=== PATIENT | male | born 1955 | race Caucasian/White ===

== ENCOUNTER 2018-08-16 19:59 | Inpatient (IN) | payer MEDICAID ==
[~2018-08-16] VITALS: Ht 177.8 cm; Wt 125.0 kg
[2018-08-16 22:14] LABS: BASOPHILS # (AUTO) 0.1 X10'3 (0-0.2); EOSINOPHILS # (AUTO) 0.1 X10'3 (0-0.9); EOSINOPHILS % (AUTO) 1.4 % (0-6); HEMATOCRIT 45.2 % (42.0-52.0); HEMOGLOBIN 15.5 g/dl (14.0-17.9); LYMPHOCYTES # (AUTO) 1.1 X10'3 (1.1-4.8); LYMPHOCYTES % (AUTO) 14.5 % (21-51); MEAN CORPUSCULAR HEMOGLOBIN 33.7 PG (27.0-31.0); MEAN CORPUSCULAR HGB CONC 34.4 % (33.0-36.5); MEAN CORPUSCULAR VOLUME 97.8 FL (78-98); MEAN PLATELET VOLUME 6.8 FL (7.4-10.4); MONOCYTES % (AUTO) 12.3 % (2-12); NEUTROPHILS # (AUTO) 5.5 X10'3 (1.8-7.7); NEUTROPHILS % (AUTO) 70.8 % (42-75); PLATELET COUNT 76 X10'3 (140-440); RED BLOOD COUNT 4.62 X10'6 (4.70-6.10); RED CELL DISTRIBUTION WIDTH 14.2 % (11.5-14.5); WHITE BLOOD COUNT 7.8 X10'3 (4.5-11.0)
[2018-08-16 22:21] LABS: ALANINE AMINOTRANSFERASE 57 U/L (12-78); ALBUMIN 2.4 G/DL (3.4-5.0); ALBUMIN/GLOBULIN RATIO 0.7 (1.1-1.5); ALKALINE PHOSPHATASE 108 IU/L (46-116); ANION GAP 8 (8-16); ASPARTATE AMINO TRANSFERASE 110 U/L (10-37); BILIRUBIN,TOTAL 2.6 MG/DL (0.1-1.0); BLOOD UREA NITROGEN 5 MG/DL (7-18); CALCIUM 7.6 MG/DL (8.5-10.1); CHLORIDE 97 MMOL/L (99-107); CREATININE 0.83 MG/DL (0.60-1.10); GLUCOSE 96 MG/DL (70-104); LIPASE 357 U/L (73-393); POTASSIUM 3.9 MMOL/L (3.5-5.1); SODIUM 132 MMOL/L (135-145); TOTAL CARBON DIOXIDE 27.5 MMOL/L (24-32); TOTAL PROTEIN 5.9 G/DL (6.4-8.2); eGFR > 90 ML/MIN
[2018-08-16 23:27] LABS: CLARITY,URINE CLEAR (Clear); COLOR,URINE AMBER (Yellow); GLUCOSE, URINE 100 mg/dl (Neg); KETONES,URINE 15 mg/dl (Neg); LEUKOCYTE ESTERASE ,URINE NEGATIVE (Neg); OCCULT BLOOD,URINE TRACE-INTACT (Neg); PH,URINE 5.5 (4.8-8.0); PROTEIN,URINE TRACE mg/dl (Neg); UROBILINOGEN,URINE >=8.0 E.U/dL (0.2-1.0)
[2018-08-16 23:29] LABS: NITRITES, URINE NEGATIVE (Neg); UA COLLECTION TYPE STRAIGHT CATH
[2018-08-16] MEDS ORDERED: NO HOME MEDS (23:47)
[2018-08-16 23:48] LABS: BACTERIA,URINE NONE SEEN /HPF (Neg); MUCUS STRANDS MANY /LPF (Neg); SQUAMOUS EPITHELIAL CELL,UR NONE SEEN /LPF (FEW); TRANSITIONAL EPI CELLS,URINE FEW /HPF; WBC,URINE 0-4 /HPF (0-4)
[2018-08-16 23:51] LABS: INR 1.4 INR; PARTIAL THROMBOPLASTIN TIME 27 SECONDS (22-32); PROTHROMBIN TIME 14.4 SECONDS (9.0-12.0)
[2018-08-17] MEDS ORDERED: bisacodyl 10mg suppository rectal RC PRN (00:25)
[2018-08-17] MEDS ORDERED: morphine 4 MG/ML inj SYRINge IV PRN (00:25)
[2018-08-17] MEDS ORDERED: metoclopramide 5 mg/ml inj IV PRN (00:25)
[2018-08-17] MEDS ORDERED: acetaminophen 650mg rectal suppository RC PRN (00:25)
[2018-08-17] MEDS ORDERED: diphenhydrAMINE 25mg capsule PO PRN (00:25)
[2018-08-17] MEDS ORDERED: magnesium hydroxide 30ml (MOM) UD suspension PO PRN (00:25)
[2018-08-17] MEDS ORDERED: mag hydrox/Alum hydrox/simeth 30ml oral suspension PO PRN ×2 (00:25→02:20)
[2018-08-17] MEDS ORDERED: ondansetron/PF 4mg/2ml inj IV PRN (00:25)
[2018-08-17] MEDS ORDERED: diphenhydrAMINE 50 mg/ml inj IV PRN (00:25)
[2018-08-17] MEDS ORDERED: acetaminophen 325mg tablet PO PRN ×2 (00:25)
[2018-08-17] MEDS: HYDROcodone/acetaminophen 10/325mg tab PO PRN ×2 (02:07→17:16)
[2018-08-17 02:10] LABS: URINE AMPHETAMINE SCREEN NEGATIVE (Neg); URINE BARBITUATE SCREEN NEGATIVE (Neg); URINE BENZODIAZEPINES SCREEN NEGATIVE (Neg); URINE CANNABINOID SCREEN NEGATIVE (Neg); URINE COCAINE SCREEN NEGATIVE (Neg); URINE METHADONE SCREEN NEGATIVE (Neg); URINE OPIATE SCREEN NEGATIVE (Neg); URINE PHENCYCLIDINE SCREEN NEGATIVE (Neg)
[2018-08-17] MEDS ORDERED: dicyclomine 10 MG capsule PO PRN (02:20)
[2018-08-17] MEDS ORDERED: haloperidol lactate 5mg/ml inj IM PRN (02:20)
[2018-08-17] MEDS ORDERED: cyclobenzaprine 10mg tablet PO PRN (02:20)
[2018-08-17] MEDS ORDERED: loperamide 2mg capsule PO ONE (02:20)
[2018-08-17] MEDS ORDERED: thiamine inj. 100 MG in normal saline 100ml IV soln 100 ML IV ONE (02:20)
[2018-08-17] MEDS: loperamide 2mg capsule PO SCH ×8 (02:20→21:00)
[2018-08-17] MEDS ORDERED: cloNIDine 0.1 MG/24 HOUR patch (7 day patch) TD SCH (02:20)
[2018-08-17] MEDS: LORazepam 2 mg/ml vial IV PRN ×3 (05:16→23:54)
[2018-08-17] MEDS: docusate sod 100mg capsule PO SCH ×2 (08:00→19:58)
[2018-08-17 08:08] LABS: MAGNESIUM 1.6 MG/DL (1.5-2.4); PHOSPHORUS 3.4 MG/DL (2.3-4.5)
[2018-08-17] MEDS: furosemide 10 MG/1 ML 10ml inj IV SCH ×2 (09:21→20:03)
[2018-08-17] MEDS: folic acid inj. 2 MG, thiamine inj. 100 MG, MVI, adult No.4 with vit. K 10 ML in dextro... IV SCH ×4 (09:22)
[2018-08-17] MEDS: nicotine 21mg patch - 24 hr TD SCH (09:22)
[2018-08-17] MEDS: pantoprazole 40mg Tablet.DR PO SCH (09:22)
[2018-08-17] MEDS: atenolol 50mg tablet PO SCH (12:59)
[2018-08-17] MEDS ORDERED: LIDOcaine 1%/PF 5ML 10 MG/ML VIAL ONE (17:24)
--- NOTE | 2018-08-17 23:54 | NUR ---
PT UP AMBULATING IN [place] WITH BELONGINGS, ASKING ABOUT FILMING A MOVIE, SLIGHTLY DISORIENTED. STATES AWOKE FROM A DREAM AND WAS CONFUSED ABOUT WHERE HE WAS. RE ORIENTED TO TIME, PLACE. ATIVAN IV GIVEN FOR ETOH WITHDRAWAL LIKE S/S.
--- NOTE | 2018-08-18 01:06 | NUR ---
FOUND WONDERING DOWN IN REGISTRATION, BROUGHT BACK TO ROOM BY STAFF. PT NOT MAKING A LOT OF SENSE. GIVEN HALDOL IM FOR ETOH WITHDRAWAL S/S.
--- NOTE | 2018-08-18 02:29 | NUR ---
SLEEPING, NO FURTHER S/S OF ETOH WITHDRAWALS AT THIS TIME.
[2018-08-18] MEDS: loperamide 2mg capsule PO SCH ×5 (03:00→12:00)
--- NOTE | 2018-08-18 03:59 | NUR ---
UP TO BR, ASHTYN WELL. SHOWN BACK TO ROOM.
--- NOTE | 2018-08-18 05:39 | NUR ---
PT FOUND WONDERING IN HALLS AGAIN, PULLED OUT IV, WRAPPED UP MONITOR CORDS NEATLY ON SHIN STAND AND HAD BELONGING BAGS IN HAND READY TO GO HOME. RE ORIENTED AGAIN, NEW SL PLACED IN R WRIST, ASHTYN WELL. ATIVAN GIVEN FOR ETOH WITHDRAWALS.
[2018-08-18] MEDS: LORazepam 2 mg/ml vial IV PRN ×3 (05:45→22:19)
[2018-08-18] MEDS: pantoprazole 40mg Tablet.DR PO SCH (07:39)
[2018-08-18 08:10] VITALS: BP 144/77
[2018-08-18 08:44] LABS: BASOPHILS % (AUTO) 0.5 % (0-1); EOSINOPHILS # (AUTO) 0.1 X10'3 (0-0.9); EOSINOPHILS % (AUTO) 1.9 % (0-6); HEMOGLOBIN 15.3 g/dl (14.0-17.9); LYMPHOCYTES # (AUTO) 1.1 X10'3 (1.1-4.8); LYMPHOCYTES % (AUTO) 20.3 % (21-51); MEAN CORPUSCULAR HEMOGLOBIN 33.7 PG (27.0-31.0); MEAN CORPUSCULAR HGB CONC 34.1 % (33.0-36.5); MEAN CORPUSCULAR VOLUME 98.9 FL (78-98); MEAN PLATELET VOLUME 6.5 FL (7.4-10.4); MONOCYTES # (AUTO) 0.8 X10'3 (0-0.9); MONOCYTES % (AUTO) 14.3 % (2-12); NEUTROPHILS # (AUTO) 3.4 X10'3 (1.8-7.7); PLATELET COUNT 66 X10'3 (140-440); RED BLOOD COUNT 4.55 X10'6 (4.70-6.10); RED CELL DISTRIBUTION WIDTH 13.9 % (11.5-14.5); WHITE BLOOD COUNT 5.4 X10'3 (4.5-11.0)
[2018-08-18] MEDS: folic acid inj. 2 MG, thiamine inj. 100 MG, MVI, adult No.4 with vit. K 10 ML in dextro... IV SCH ×4 (08:55)
[2018-08-18] MEDS: furosemide 10 MG/1 ML 10ml inj IV SCH ×2 (08:55→22:21)
[2018-08-18] MEDS: atenolol 50mg tablet PO SCH (08:55)
[2018-08-18] MEDS: docusate sod 100mg capsule PO SCH ×2 (08:55→22:22)
[2018-08-18] MEDS: nicotine 21mg patch - 24 hr TD SCH (08:56)
[2018-08-18 09:02] LABS: ALANINE AMINOTRANSFERASE 51 U/L (12-78); ALBUMIN 2.3 G/DL (3.4-5.0); ALBUMIN/GLOBULIN RATIO 0.7 (1.1-1.5); ALKALINE PHOSPHATASE 96 IU/L (46-116); AMYLASE 217 U/L (25-115); ANION GAP 11 (8-16); ASPARTATE AMINO TRANSFERASE 103 U/L (10-37); BILIRUBIN,TOTAL 3.9 MG/DL (0.1-1.0); BLOOD UREA NITROGEN 7 MG/DL (7-18); CALCIUM 7.6 MG/DL (8.5-10.1); CHLORIDE 97 MMOL/L (99-107); CREATININE 0.78 MG/DL (0.60-1.10); GLUCOSE 75 MG/DL (70-104); MAGNESIUM 1.5 MG/DL (1.5-2.4); POTASSIUM 3.4 MMOL/L (3.5-5.1); SODIUM 134 MMOL/L (135-145); TOTAL CARBON DIOXIDE 26.5 MMOL/L (24-32); TOTAL PROTEIN 5.4 G/DL (6.4-8.2); eGFR > 90 ML/MIN
[2018-08-18 09:11] LABS: LIPASE 1964 U/L (73-393)
--- NOTE | 2018-08-18 10:06 | NUR ---
Just spoke to the patient's Britt, updated her about patient condition and plan of care. Information given with patient's verbal permission
[2018-08-18 11:00] VITALS: BP 128/64
[2018-08-18 13:21] VITALS: BP 136/88
--- NOTE | 2018-08-18 13:22 | NUR ---
IR staff at bedside preparing patient for paracentesis
[2018-08-18 13:29] VITALS: BP 130/81
[2018-08-18] MEDS ORDERED: albumin (human) 25% 100ml IV 100 ML IV ONE ×3 (13:35→14:40)
--- NOTE | 2018-08-18 14:56 | NUR ---
Second bottle of Albumin 25% 100 ml given. BP after the first dose of Albumin was 111/68.Will monitor BP closely. Pressure dressing on the puncture site - left lateral abdomen applied, bandage was noted wet.
[2018-08-18] MEDS ORDERED: Lactulose Enema **for rectal use only RC SCH ×2 (15:00)
--- NOTE | 2018-08-18 15:13 | NUR ---
Called patient's Estela for an update per patient's request
[2018-08-18 15:30] LABS: GLUCOSE,BODY FLUID 94 MG/DL; LDH,BODY FLUID 71 U/L
[2018-08-18 15:43] LABS: LYMPHOCYTES,BODY FLUID 70 %; MONOCYTES,BODY FLUID 10 %; NEUTROPHILS,BODY FLUID 20 %
[2018-08-18 15:45] LABS: BF RBC COUNT 3325 /CU MM; BF WBC COUNT 40 /CU MM (0-1000); BFAPPEAR CLOUDY; BFCOLOR YELLOW; BFVOLUME 6 ML
[2018-08-18 15:52] LABS: TOTAL PROTEIN,BODY FLUID < 2.0 G/DL
[2018-08-18] MEDS: dextrose 5%-water 1,000 ML IV SCH ×2 (15:59→23:40)
--- NOTE | 2018-08-18 16:01 | NUR ---
3rd bottle of Albumin 25% given IV as ordered. BP 137/79 Addendum: 08/18/18 at 1604 by Mike Ley RN Total fluid removed after paracentesis was approx 11 liters per IR nurse
[2018-08-18 19:00] VITALS: BP 130/74
--- NOTE | 2018-08-18 19:01 | NUR ---
Problems reprioritized. Patient report given, questions answered & plan of care reviewed with Agnes DRAPER.
[2018-08-18] MEDS: HYDROmorphone 1 mg/ml syringe IV PRN (19:03)
[2018-08-18] MEDS: HYDROcodone/acetaminophen 10/325mg tab PO PRN (22:21)
[2018-08-19] VITALS: BP 104/50
[2018-08-19] MEDS: HYDROmorphone 1 mg/ml syringe IV PRN (01:28)
[2018-08-19] MEDS: dextrose 5%-water 1,000 ML IV SCH (01:33)
[2018-08-19 06:28] LABS: ALANINE AMINOTRANSFERASE 36 U/L (12-78); ALBUMIN 2.2 G/DL (3.4-5.0); ALKALINE PHOSPHATASE 64 IU/L (46-116); ANION GAP 7 (8-16); ASPARTATE AMINO TRANSFERASE 69 U/L (10-37); BILIRUBIN,TOTAL 3.4 MG/DL (0.1-1.0); BLOOD UREA NITROGEN 6 MG/DL (7-18); BUN/CREATININE RATIO 8.1 (5.4-32.0); CALCIUM 7.1 MG/DL (8.5-10.1); CHLORIDE 98 MMOL/L (99-107); CREATININE 0.74 MG/DL (0.60-1.10); GLUCOSE 110 MG/DL (70-104); LIPASE 253 U/L (73-393); MAGNESIUM 1.3 MG/DL (1.5-2.4); PHOSPHORUS 3.7 MG/DL (2.3-4.5); SODIUM 135 MMOL/L (135-145); TOTAL CARBON DIOXIDE 30.4 MMOL/L (24-32); TOTAL PROTEIN 4.3 G/DL (6.4-8.2); eGFR > 90 ML/MIN
[2018-08-19 06:34] LABS: BASOPHILS # (AUTO) 0.1 X10'3 (0-0.2); HEMATOCRIT 40.8 % (42.0-52.0); HEMOGLOBIN 13.9 g/dl (14.0-17.9); LYMPHOCYTES % (AUTO) 20.2 % (21-51); MEAN CORPUSCULAR HEMOGLOBIN 33.5 PG (27.0-31.0); MEAN CORPUSCULAR VOLUME 98.6 FL (78-98); MEAN PLATELET VOLUME 6.4 FL (7.4-10.4); MONOCYTES # (AUTO) 0.6 X10'3 (0-0.9); MONOCYTES % (AUTO) 11.9 % (2-12); NEUTROPHILS # (AUTO) 3.2 X10'3 (1.8-7.7); NEUTROPHILS % (AUTO) 65.9 % (42-75); PLATELET COUNT 61 X10'3 (140-440); RED BLOOD COUNT 4.14 X10'6 (4.70-6.10); RED CELL DISTRIBUTION WIDTH 13.6 % (11.5-14.5); WHITE BLOOD COUNT 4.8 X10'3 (4.5-11.0)
--- NOTE | 2018-08-19 06:45 | NUR ---
Problems reprioritized. Patient report given, questions answered & plan of care reviewed with Mary DRAPER. Addendum: 08/19/18 at 0645 by Agnes Srinivasan RN Amended: Links added.
--- NOTE | 2018-08-19 06:50 | NUR ---
Patient in room [facility]. I have received report from BARON Alarcon and had the opportunity to ask questions and assume patient care.
[2018-08-19 07:00] VITALS: BP 104/45
[2018-08-19 07:28] LABS: POTASSIUM 2.8 MMOL/L (3.5-5.1)
[2018-08-19] MEDS ORDERED: potassium Cl 40MEQ/NS 500ml 500 ML IV PRN ×2 (07:45)
[2018-08-19] MEDS ORDERED: magnesium 4gm in 100ml NS 100 ML IV PRN (07:45)
[2018-08-19] MEDS: lactulose 20gm/30ml cup PO SCH ×3 (08:13→20:34)
[2018-08-19] MEDS: folic acid 1mg tablet PO SCH (08:13)
[2018-08-19] MEDS: thiamine 100mg tablet PO SCH (08:14)
[2018-08-19] MEDS: atenolol 50mg tablet PO SCH (08:14)
[2018-08-19] MEDS: nicotine 21mg patch - 24 hr TD SCH (08:15)
[2018-08-19] MEDS: docusate sod 100mg capsule PO SCH ×2 (08:15→20:34)
[2018-08-19] MEDS: furosemide 10 MG/1 ML 10ml inj IV SCH ×3 (08:16→23:34)
[2018-08-19] MEDS: pantoprazole 40mg Tablet.DR PO SCH (08:16)
[2018-08-19] MEDS: potassium Cl 20 mEq SR tablet PO PRN ×3 (08:18→17:16)
[2018-08-19 11:00] VITALS: BP 124/59
[2018-08-19] MEDS: HYDROcodone/acetaminophen 10/325mg tab PO PRN ×2 (12:10→23:37)
[2018-08-19] MEDS ORDERED: pneumococcal 23-VAL P-sac vacc 25 mcg/0.5ml vial IMVAC ONE (12:34)
[2018-08-19] MEDS ORDERED: LORazepam 2 mg/ml vial IV PRN (13:30)
[2018-08-19] MEDS ORDERED: TETanus/Pertussis (Acell)/Diphther VAC/PF (Tdap-Adult) 0.5ml syringe IMVAC ONE (14:35)
[2018-08-19] MEDS: LORazepam 1 MG tablet PO PRN ×3 (17:16→23:37)
--- NOTE | 2018-08-19 18:01 | NUR ---
Problems reprioritized. Patient report given, questions answered & plan of care reviewed with BARON Hensley. Addendum: 08/19/18 at 1818 by Mary Fall RN Problems reprioritized. Patient report given, questions answered & plan of care reviewed with BARON Hathaway.
--- NOTE | 2018-08-19 18:30 | NUR ---
Patient in room [facility]. I have received report from BARON Hernandez and had the opportunity to ask questions and assume patient care. Addendum: 08/19/18 at 1909 by Frances Cassidy RN Amended: Links added.
[2018-08-19 19:00] VITALS: BP 152/89
[2018-08-19 23:32] VITALS: BP 138/81
[2018-08-20] MEDS: LORazepam 1 MG tablet PO PRN ×3 (02:15→10:42)
[2018-08-20] MEDS: lactulose 20gm/30ml cup PO SCH ×4 (02:15→19:38)
[2018-08-20] MEDS: HYDROmorphone 1 mg/ml syringe IV PRN ×3 (02:57→19:44)
[2018-08-20] MEDS: HYDROcodone/acetaminophen 10/325mg tab PO PRN (04:55)
[2018-08-20 05:34] LABS: BASOPHILS % (AUTO) 1.1 % (0-1); EOSINOPHILS % (AUTO) 0.3 % (0-6); HEMATOCRIT 44.4 % (42.0-52.0); HEMOGLOBIN 15.2 g/dl (14.0-17.9); LYMPHOCYTES # (AUTO) 0.5 X10'3 (1.1-4.8); LYMPHOCYTES % (AUTO) 13.5 % (21-51); MEAN CORPUSCULAR HEMOGLOBIN 33.4 PG (27.0-31.0); MEAN CORPUSCULAR HGB CONC 34.2 % (33.0-36.5); MEAN CORPUSCULAR VOLUME 97.4 FL (78-98); MEAN PLATELET VOLUME 6.4 FL (7.4-10.4); MONOCYTES # (AUTO) 0.5 X10'3 (0-0.9); MONOCYTES % (AUTO) 14.2 % (2-12); NEUTROPHILS # (AUTO) 2.7 X10'3 (1.8-7.7); NEUTROPHILS % (AUTO) 70.9 % (42-75); PLATELET COUNT 68 X10'3 (140-440); RED BLOOD COUNT 4.56 X10'6 (4.70-6.10); RED CELL DISTRIBUTION WIDTH 13.9 % (11.5-14.5); WHITE BLOOD COUNT 3.8 X10'3 (4.5-11.0)
[2018-08-20 05:49] LABS: ALANINE AMINOTRANSFERASE 51 U/L (12-78); ALBUMIN 2.6 G/DL (3.4-5.0); ALKALINE PHOSPHATASE 72 IU/L (46-116); ANION GAP 8 (8-16); ASPARTATE AMINO TRANSFERASE 100 U/L (10-37); BILIRUBIN,TOTAL 3.6 MG/DL (0.1-1.0); BLOOD UREA NITROGEN 7 MG/DL (7-18); BUN/CREATININE RATIO 7.8 (5.4-32.0); CALCIUM 7.3 MG/DL (8.5-10.1); CHLORIDE 97 MMOL/L (99-107); GLUCOSE 107 MG/DL (70-104); LIPASE 256 U/L (73-393); MAGNESIUM 1.2 MG/DL (1.5-2.4); POTASSIUM 3.4 MMOL/L (3.5-5.1); SODIUM 132 MMOL/L (135-145); TOTAL CARBON DIOXIDE 27.2 MMOL/L (24-32); TOTAL PROTEIN 5.3 G/DL (6.4-8.2); eGFR 86 ML/MIN
--- NOTE | 2018-08-20 06:45 | NUR ---
Problems reprioritized. Patient report given, questions answered & plan of care reviewed with JOSSELIN DRAPER. Addendum: 08/20/18 at 0709 by Frances Cassidy RN Amended: Links added.
[2018-08-20 07:00] VITALS: BP 129/60
[2018-08-20] MEDS: thiamine 100mg tablet PO SCH (09:08)
[2018-08-20] MEDS: potassium Cl 20 mEq SR tablet PO PRN ×3 (09:08→17:52)
[2018-08-20] MEDS: docusate sod 100mg capsule PO SCH ×2 (09:08→19:38)
[2018-08-20] MEDS: folic acid 1mg tablet PO SCH (09:08)
[2018-08-20] MEDS: furosemide 10 MG/1 ML 10ml inj IV SCH ×2 (09:08→19:43)
[2018-08-20] MEDS: nicotine 21mg patch - 24 hr TD SCH (09:09)
[2018-08-20] MEDS: atenolol 50mg tablet PO SCH (09:09)
[2018-08-20] MEDS: pantoprazole 40mg Tablet.DR PO SCH (09:09)
[2018-08-20 12:00] VITALS: BP 133/71
[2018-08-20] MEDS ORDERED: magnesium 2GM in 50ml NS 50 ML IV PRN (12:15)
--- NOTE | 2018-08-20 18:30 | NUR ---
Patient in room [facility]. I have received report from BARON SCHWAB and had the opportunity to ask questions and assume patient care. Addendum: 08/20/18 at 1921 by Frances Cassidy RN Amended: Links added.
--- NOTE | 2018-08-20 18:42 | NUR ---
Problems reprioritized. Patient report given, questions answered & plan of care reviewed with BARON Nagel.
[2018-08-20 19:33] VITALS: BP 172/87
[2018-08-20 23:30] VITALS: BP 132/74
[2018-08-21] MEDS: HYDROcodone/acetaminophen 10/325mg tab PO PRN ×3 (00:49→19:59)
[2018-08-21] MEDS: LORazepam 1 MG tablet PO PRN ×2 (00:49→10:21)
[2018-08-21] MEDS: lactulose 20gm/30ml cup PO SCH ×4 (02:00→19:58)
[2018-08-21 04:00] VITALS: BP 123/63
[2018-08-21 05:38] LABS: BASOPHILS % (AUTO) 0.5 % (0-1); EOSINOPHILS % (AUTO) 0 % (0-6); HEMATOCRIT 46.4 % (42.0-52.0); HEMOGLOBIN 15.7 g/dl (14.0-17.9); LYMPHOCYTES # (AUTO) 0.8 X10'3 (1.1-4.8); LYMPHOCYTES % (AUTO) 12.7 % (21-51); MEAN CORPUSCULAR HEMOGLOBIN 33.6 PG (27.0-31.0); MEAN CORPUSCULAR HGB CONC 33.8 % (33.0-36.5); MEAN CORPUSCULAR VOLUME 99.5 FL (78-98); MEAN PLATELET VOLUME 6.8 FL (7.4-10.4); MONOCYTES # (AUTO) 0.8 X10'3 (0-0.9); NEUTROPHILS # (AUTO) 4.9 X10'3 (1.8-7.7); NEUTROPHILS % (AUTO) 74.8 % (42-75); PLATELET COUNT 60 X10'3 (140-440); RED BLOOD COUNT 4.66 X10'6 (4.70-6.10); WHITE BLOOD COUNT 6.6 X10'3 (4.5-11.0)
[2018-08-21 06:19] LABS: ALANINE AMINOTRANSFERASE 46 U/L (12-78); ALBUMIN 2.5 G/DL (3.4-5.0); ALBUMIN/GLOBULIN RATIO 0.9 (1.1-1.5); ALKALINE PHOSPHATASE 68 IU/L (46-116); ANION GAP 6 (8-16); ASPARTATE AMINO TRANSFERASE 100 U/L (10-37); BILIRUBIN,TOTAL 2.5 MG/DL (0.1-1.0); CALCIUM 7.2 MG/DL (8.5-10.1); CHLORIDE 98 MMOL/L (99-107); CREATININE 0.97 MG/DL (0.60-1.10); GLUCOSE 90 MG/DL (70-104); MAGNESIUM 1.8 MG/DL (1.5-2.4); PHOSPHORUS 3.5 MG/DL (2.3-4.5); POTASSIUM 3.3 MMOL/L (3.5-5.1); SODIUM 135 MMOL/L (135-145); TOTAL CARBON DIOXIDE 31.1 MMOL/L (24-32); TOTAL PROTEIN 5.4 G/DL (6.4-8.2); eGFR 78 ML/MIN
--- NOTE | 2018-08-21 06:31 | NUR ---
Problems reprioritized. Patient report given, questions answered & plan of care reviewed with BARON Veliz. Addendum: 08/21/18 at 0631 by Frances Cassidy RN Amended: Links added.
[2018-08-21 06:33] LABS: BLOOD UREA NITROGEN 9 MG/DL (7-18); BUN/CREATININE RATIO 9.3 (5.4-32.0)
[2018-08-21 06:38] LABS: LIPASE 1807 U/L (73-393)
[2018-08-21] MEDS: pantoprazole 40mg Tablet.DR PO SCH (07:47)
[2018-08-21] MEDS: thiamine 100mg tablet PO SCH (07:47)
[2018-08-21] MEDS: potassium Cl 20 mEq SR tablet PO PRN ×3 (07:47→16:26)
[2018-08-21] MEDS: folic acid 1mg tablet PO SCH (07:47)
[2018-08-21] MEDS: nicotine 21mg patch - 24 hr TD SCH (07:47)
[2018-08-21 07:50] VITALS: BP 143/76
[2018-08-21] MEDS: docusate sod 100mg capsule PO SCH (07:54)
[2018-08-21] MEDS: atenolol 50mg tablet PO SCH (07:55)
[2018-08-21] MEDS: furosemide 10 MG/1 ML 10ml inj IV SCH ×2 (07:55→20:11)
--- NOTE | 2018-08-21 11:27 | NUR ---
ss met pt today, attempted to provided psychosocial & ETOH use assessments, pt alert & oriented X3 however, had significant difficulties participating in assessment interview, SS will rt at later time & try again. Pt provided verbal consent for SS to contact his spouse. SS contacted pt's spouse, engaged her in discussion re pt's ADLs, use of etoh & how much caregiving she provides. Per discussion, spouse is pt's caregiver & not interested in [facility] services, pt is an alcoholic was able to maintain sobriety for 5 years when he was incarcerated, but relapsed when he returned home yet spouse does not feel that pt needs referrals/resources about alcohol treatment programs. SS will see pt later today to attempt assessments.
[2018-08-21 13:00] VITALS: BP 83/45
[2018-08-21 13:05] VITALS: BP 87/51
--- NOTE | 2018-08-21 13:10 | NUR ---
Patient BP 83/45..recheck 87/51, Dr. Priest aware, no new orders.
--- NOTE | 2018-08-21 18:50 | NUR ---
Patient in room [facility]. I have received report from Cara DRAPER and had the opportunity to ask questions and assume patient care.
[2018-08-21] MEDS: CefTRIAXone 2gm/D5W 50ml 50 ML IV SCH (18:56)
[2018-08-21 19:00] VITALS: BP 102/61
--- NOTE | 2018-08-21 19:05 | NUR ---
Problems reprioritized. Patient report given, questions answered & plan of care reviewed with BARON De La Torre.
[2018-08-21] MEDS: lactobacillus rhamnosus 10,000 MMU CELLS/CAPSULE PO SCH (19:58)
[2018-08-22] VITALS: BP 97/50
[2018-08-22] MEDS: lactulose 20gm/30ml cup PO SCH ×4 (03:30→21:01)
[2018-08-22 06:37] LABS: BASOPHILS % (AUTO) 0.7 % (0-1); EOSINOPHILS # (AUTO) 0.1 X10'3 (0-0.9); EOSINOPHILS % (AUTO) 1.4 % (0-6); HEMATOCRIT 46.6 % (42.0-52.0); HEMOGLOBIN 15.8 g/dl (14.0-17.9); LYMPHOCYTES # (AUTO) 0.6 X10'3 (1.1-4.8); LYMPHOCYTES % (AUTO) 11.6 % (21-51); MEAN CORPUSCULAR HEMOGLOBIN 33.8 PG (27.0-31.0); MEAN CORPUSCULAR HGB CONC 33.9 % (33.0-36.5); MEAN CORPUSCULAR VOLUME 99.7 FL (78-98); MEAN PLATELET VOLUME 7.1 FL (7.4-10.4); MONOCYTES # (AUTO) 0.6 X10'3 (0-0.9); MONOCYTES % (AUTO) 11.5 % (2-12); NEUTROPHILS % (AUTO) 74.8 % (42-75); PLATELET COUNT 57 X10'3 (140-440); RED BLOOD COUNT 4.68 X10'6 (4.70-6.10); WHITE BLOOD COUNT 5.3 X10'3 (4.5-11.0)
[2018-08-22 07:01] LABS: ALANINE AMINOTRANSFERASE 53 U/L (12-78); ALBUMIN 2.2 G/DL (3.4-5.0); ALBUMIN/GLOBULIN RATIO 0.7 (1.1-1.5); ALKALINE PHOSPHATASE 64 IU/L (46-116); ANION GAP 4 (8-16); ASPARTATE AMINO TRANSFERASE 99 U/L (10-37); BLOOD UREA NITROGEN 11 MG/DL (7-18); BUN/CREATININE RATIO 12.9 (5.4-32.0); CALCIUM 7.8 MG/DL (8.5-10.1); CHLORIDE 99 MMOL/L (99-107); CREATININE 0.85 MG/DL (0.60-1.10); GLUCOSE 106 MG/DL (70-104); LIPASE 785 U/L (73-393); MAGNESIUM 1.6 MG/DL (1.5-2.4); PHOSPHORUS 2.9 MG/DL (2.3-4.5); SODIUM 136 MMOL/L (135-145); TOTAL PROTEIN 5.2 G/DL (6.4-8.2); eGFR > 90 ML/MIN
--- NOTE | 2018-08-22 07:05 | NUR ---
Problems reprioritized. Patient report given, questions answered & plan of care reviewed with Radha DRAPER.
[2018-08-22 07:37] VITALS: BP 131/71
[2018-08-22] MEDS: nicotine 21mg patch - 24 hr TD SCH (09:55)
[2018-08-22] MEDS: pantoprazole 40mg Tablet.DR PO SCH (09:55)
[2018-08-22] MEDS: furosemide 10 MG/1 ML 10ml inj IV SCH ×2 (09:56→21:02)
[2018-08-22] MEDS: lactobacillus rhamnosus 10,000 MMU CELLS/CAPSULE PO SCH ×2 (09:56→21:00)
[2018-08-22] MEDS: CefTRIAXone 2gm/D5W 50ml 50 ML IV SCH (09:56)
[2018-08-22] MEDS: folic acid 1mg tablet PO SCH (09:57)
[2018-08-22] MEDS: thiamine 100mg tablet PO SCH (09:57)
[2018-08-22 12:14] VITALS: BP 94/56
--- NOTE | 2018-08-22 15:27 | NUR ---
Initial: Pt admitted with ascites secondary to cirrhosis of liver, s/p paracentesis with 11 L obtained per MD progress notes. Pt currently encephalopathic and confused per MD progress notes. Pt previously on a clear liquid diet with good PO intake, diet has just been advanced to regular, PO intake pending. Pt on Thiamine and Folic acid d/t significant Etoh abuse. LBM 08/22, no wounds. Will continue to follow. Recommendations: 1) Continue with regular diet 2) Continue Thiamine and Folic acid d/t hx Etoh abuse 3) Wt per rx Addendum: 08/22/18 at [address] Amended: Links added.
--- NOTE | 2018-08-22 18:23 | NUR ---
Problems reprioritized. Patient report given, questions answered & plan of care reviewed with BARON De La Torre.
--- NOTE | 2018-08-22 18:50 | NUR ---
Patient in room [facility]. I have received report from Radha Michele and had the opportunity to ask questions and assume patient care.
[2018-08-22 19:00] VITALS: BP 109/61
[2018-08-22] MEDS: LORazepam 1 MG tablet PO PRN (21:00)
[2018-08-22] MEDS: HYDROcodone/acetaminophen 10/325mg tab PO PRN (21:01)
[2018-08-23] VITALS: BP 110/68
[2018-08-23] MEDS: lactulose 20gm/30ml cup PO SCH ×4 (02:08→20:51)
--- NOTE | 2018-08-23 06:20 | NUR ---
Patient in room [facility]. I have received report from Britt DRAPER and had the opportunity to ask questions and assume patient care.
--- NOTE | 2018-08-23 06:25 | NUR ---
Problems reprioritized. Patient report given, questions answered & plan of care reviewed with Gem DRAPER.
[2018-08-23 06:47] LABS: EOSINOPHILS # (AUTO) 0.1 X10'3 (0-0.9); EOSINOPHILS % (AUTO) 2.3 % (0-6); HEMATOCRIT 46.8 % (42.0-52.0); HEMOGLOBIN 15.4 g/dl (14.0-17.9); LYMPHOCYTES # (AUTO) 1.2 X10'3 (1.1-4.8); LYMPHOCYTES % (AUTO) 27.2 % (21-51); MEAN CORPUSCULAR HGB CONC 32.9 % (33.0-36.5); MEAN CORPUSCULAR VOLUME 100.5 FL (78-98); MEAN PLATELET VOLUME 7.4 FL (7.4-10.4); MONOCYTES # (AUTO) 0.7 X10'3 (0-0.9); MONOCYTES % (AUTO) 15.8 % (2-12); NEUTROPHILS # (AUTO) 2.3 X10'3 (1.8-7.7); NEUTROPHILS % (AUTO) 53.7 % (42-75); PLATELET COUNT 54 X10'3 (140-440); RED BLOOD COUNT 4.65 X10'6 (4.70-6.10); RED CELL DISTRIBUTION WIDTH 14.1 % (11.5-14.5); WHITE BLOOD COUNT 4.3 X10'3 (4.5-11.0)
[2018-08-23 07:13] LABS: ALANINE AMINOTRANSFERASE 59 U/L (12-78); ALBUMIN 2.2 G/DL (3.4-5.0); ALBUMIN/GLOBULIN RATIO 0.8 (1.1-1.5); ALKALINE PHOSPHATASE 70 IU/L (46-116); ANION GAP 7 (8-16); ASPARTATE AMINO TRANSFERASE 105 U/L (10-37); BILIRUBIN,TOTAL 1.7 MG/DL (0.1-1.0); BLOOD UREA NITROGEN 13 MG/DL (7-18); BUN/CREATININE RATIO 14.4 (5.4-32.0); CALCIUM 7.6 MG/DL (8.5-10.1); CHLORIDE 100 MMOL/L (99-107); GLUCOSE 98 MG/DL (70-104); LIPASE 408 U/L (73-393); MAGNESIUM 1.6 MG/DL (1.5-2.4); PHOSPHORUS 3.4 MG/DL (2.3-4.5); POTASSIUM 3.4 MMOL/L (3.5-5.1); SODIUM 140 MMOL/L (135-145); TOTAL PROTEIN 5.1 G/DL (6.4-8.2); eGFR 86 ML/MIN
[2018-08-23 07:47] VITALS: BP 115/62
[2018-08-23] MEDS: folic acid 1mg tablet PO SCH (07:55)
[2018-08-23] MEDS: pantoprazole 40mg Tablet.DR PO SCH (07:55)
[2018-08-23] MEDS: lactobacillus rhamnosus 10,000 MMU CELLS/CAPSULE PO SCH ×2 (07:55→20:52)
[2018-08-23] MEDS: thiamine 100mg tablet PO SCH (07:55)
[2018-08-23] MEDS: nicotine 21mg patch - 24 hr TD SCH (07:56)
[2018-08-23] MEDS: furosemide 10 MG/1 ML 10ml inj IV SCH (07:56)
[2018-08-23] MEDS: CefTRIAXone 2gm/D5W 50ml 50 ML IV SCH (07:56)
[2018-08-23] MEDS: HYDROcodone/acetaminophen 10/325mg tab PO PRN ×2 (07:58→20:52)
[2018-08-23] MEDS ORDERED: potassium Cl 40MEQ/NS 500ml 500 ML IV PRN ×2 (09:35)
[2018-08-23] MEDS ORDERED: potassium Cl 20 mEq SR tablet PO PRN (09:35)
[2018-08-23] MEDS: potassium Cl 20 mEq SR tablet PO PRN ×3 (10:12→20:55)
[2018-08-23 11:28] VITALS: BP 98/58
[2018-08-23] MEDS ORDERED: LORazepam 2 mg/ml vial IV PRN (13:30)
[2018-08-23] MEDS ORDERED: LORazepam 1 MG tablet PO PRN (13:30)
[2018-08-23 16:36] VITALS: BP 119/74
[2018-08-23 18:00] VITALS: BP 134/84
--- NOTE | 2018-08-23 18:14 | NUR ---
Problems reprioritized. Patient report given, questions answered & plan of care reviewed with Rashaun DRAPER.
--- NOTE | 2018-08-23 18:30 | NUR ---
Patient in room [facility]. I have received report from Roberto DRAPER and had the opportunity to ask questions and assume patient care.
[2018-08-23] MEDS: temazepam 15mg capsule PO PRN (23:27)
[2018-08-24] VITALS: BP 133/77
[2018-08-24] MEDS ORDERED: HYDROmorphone 1 mg/ml syringe IV PRN
[2018-08-24] MEDS ORDERED: furosemide 10 MG/1 ML 10ml inj IV ONE
[2018-08-24] MEDS: lactulose 20gm/30ml cup PO SCH ×4 (02:00→19:50)
[2018-08-24 06:13] LABS: EOSINOPHILS # (AUTO) 0.1 X10'3 (0-0.9); HEMATOCRIT 43.9 % (42.0-52.0); HEMOGLOBIN 14.8 g/dl (14.0-17.9); LYMPHOCYTES # (AUTO) 1.1 X10'3 (1.1-4.8); LYMPHOCYTES % (AUTO) 32.5 % (21-51); MEAN CORPUSCULAR HEMOGLOBIN 33.4 PG (27.0-31.0); MEAN CORPUSCULAR HGB CONC 33.7 % (33.0-36.5); MEAN CORPUSCULAR VOLUME 99.2 FL (78-98); MEAN PLATELET VOLUME 7.4 FL (7.4-10.4); MONOCYTES # (AUTO) 0.5 X10'3 (0-0.9); MONOCYTES % (AUTO) 15.1 % (2-12); NEUTROPHILS # (AUTO) 1.7 X10'3 (1.8-7.7); NEUTROPHILS % (AUTO) 49.4 % (42-75); RED BLOOD COUNT 4.42 X10'6 (4.70-6.10); RED CELL DISTRIBUTION WIDTH 13.2 % (11.5-14.5); WHITE BLOOD COUNT 3.4 X10'3 (4.5-11.0)
[2018-08-24 06:17] LABS: PLATELET COUNT 42 X10'3 (140-440)
[2018-08-24 06:31] LABS: ALANINE AMINOTRANSFERASE 61 U/L (12-78); ALBUMIN 2.1 G/DL (3.4-5.0); ALBUMIN/GLOBULIN RATIO 0.8 (1.1-1.5); ALKALINE PHOSPHATASE 65 IU/L (46-116); ANION GAP 6 (8-16); ASPARTATE AMINO TRANSFERASE 94 U/L (10-37); BILIRUBIN,TOTAL 1.6 MG/DL (0.1-1.0); BLOOD UREA NITROGEN 13 MG/DL (7-18); BUN/CREATININE RATIO 16.5 (5.4-32.0); CALCIUM 7.3 MG/DL (8.5-10.1); CHLORIDE 100 MMOL/L (99-107); CREATININE 0.79 MG/DL (0.60-1.10); GLUCOSE 99 MG/DL (70-104); MAGNESIUM 1.5 MG/DL (1.5-2.4); PHOSPHORUS 3.3 MG/DL (2.3-4.5); POTASSIUM 3.5 MMOL/L (3.5-5.1); SODIUM 139 MMOL/L (135-145); TOTAL CARBON DIOXIDE 33.5 MMOL/L (24-32); TOTAL PROTEIN 4.8 G/DL (6.4-8.2); eGFR > 90 ML/MIN
--- NOTE | 2018-08-24 06:40 | NUR ---
Patient in room [facility]. I have received report from Rashaun DRAPER and had the opportunity to ask questions and assume patient care.
--- NOTE | 2018-08-24 06:49 | NUR ---
Problems reprioritized. Patient report given, questions answered & plan of care reviewed with Gem DRAPER
[2018-08-24 07:08] VITALS: BP 101/53
[2018-08-24] MEDS: furosemide 40mg tablet PO SCH (07:51)
[2018-08-24] MEDS: thiamine 100mg tablet PO SCH (07:51)
[2018-08-24] MEDS: folic acid 1mg tablet PO SCH (07:52)
[2018-08-24] MEDS: pantoprazole 40mg Tablet.DR PO SCH (07:52)
[2018-08-24] MEDS: spironolactone 25 MG tablet PO SCH (07:52)
[2018-08-24] MEDS: lactobacillus rhamnosus 10,000 MMU CELLS/CAPSULE PO SCH ×2 (07:52→19:49)
[2018-08-24] MEDS: nicotine 21mg patch - 24 hr TD SCH (07:53)
[2018-08-24] MEDS: CefTRIAXone 2gm/D5W 50ml 50 ML IV SCH (08:00)
[2018-08-24] MEDS: HYDROcodone/acetaminophen 10/325mg tab PO PRN ×2 (09:09→19:51)
[2018-08-24 11:41] VITALS: BP 112/70
--- NOTE | 2018-08-24 16:00 | NUR ---
Dr. Hogan informed of urine output of only 200ml since 0500. ordered to d/c cortes. Patient stating he has inguinal hernia which has prevented him from urinating in past. stated to still D/C cortes to see if pt can void.
--- NOTE | 2018-08-24 18:29 | NUR ---
Problems reprioritized. Patient report given, questions answered & plan of care reviewed with Agnes DRAPER.
[2018-08-24] MEDS: temazepam 15mg capsule PO PRN (21:07)
[2018-08-25] VITALS: BP 119/55
[2018-08-25] MEDS: lactulose 20gm/30ml cup PO SCH ×3 (02:00→14:07)
--- NOTE | 2018-08-25 06:00 | NUR ---
Problems reprioritized. Patient report given, questions answered & plan of care reviewed with Sherice DRAPER. Addendum: 08/25/18 at 0649 by Agnes Srinivasan RN Amended: Links added.
[2018-08-25 06:08] LABS: BASOPHILS % (AUTO) 0.8 % (0-1); EOSINOPHILS # (AUTO) 0.1 X10'3 (0-0.9); EOSINOPHILS % (AUTO) 1.6 % (0-6); HEMATOCRIT 39.8 % (42.0-52.0); LYMPHOCYTES # (AUTO) 1.2 X10'3 (1.1-4.8); LYMPHOCYTES % (AUTO) 29.2 % (21-51); MEAN CORPUSCULAR HGB CONC 35.3 % (33.0-36.5); MEAN CORPUSCULAR VOLUME 99.2 FL (78-98); MEAN PLATELET VOLUME 8.3 FL (7.4-10.4); MONOCYTES # (AUTO) 0.6 X10'3 (0-0.9); MONOCYTES % (AUTO) 13.9 % (2-12); NEUTROPHILS # (AUTO) 2.4 X10'3 (1.8-7.7); NEUTROPHILS % (AUTO) 54.5 % (42-75); RED BLOOD COUNT 4.01 X10'6 (4.70-6.10); RED CELL DISTRIBUTION WIDTH 13.1 % (11.5-14.5); WHITE BLOOD COUNT 4.3 X10'3 (4.5-11.0)
[2018-08-25 06:12] LABS: PLATELET COUNT 42 X10'3 (140-440)
[2018-08-25 06:33] LABS: ALANINE AMINOTRANSFERASE 69 U/L (12-78); ALBUMIN 2.1 G/DL (3.4-5.0); ALBUMIN/GLOBULIN RATIO 0.8 (1.1-1.5); ALKALINE PHOSPHATASE 68 IU/L (46-116); ANION GAP 6 (8-16); ASPARTATE AMINO TRANSFERASE 103 U/L (10-37); BILIRUBIN,TOTAL 1.5 MG/DL (0.1-1.0); BLOOD UREA NITROGEN 11 MG/DL (7-18); BUN/CREATININE RATIO 13.4 (5.4-32.0); CALCIUM 7.4 MG/DL (8.5-10.1); CHLORIDE 101 MMOL/L (99-107); CREATININE 0.82 MG/DL (0.60-1.10); GLUCOSE 106 MG/DL (70-104); MAGNESIUM 1.5 MG/DL (1.5-2.4); PHOSPHORUS 3.7 MG/DL (2.3-4.5); POTASSIUM 3.4 MMOL/L (3.5-5.1); SODIUM 138 MMOL/L (135-145); TOTAL CARBON DIOXIDE 31.4 MMOL/L (24-32); TOTAL PROTEIN 4.8 G/DL (6.4-8.2); eGFR > 90 ML/MIN
[2018-08-25 07:00] VITALS: BP 113/54
[2018-08-25] MEDS: lactobacillus rhamnosus 10,000 MMU CELLS/CAPSULE PO SCH (08:41)
[2018-08-25] MEDS: nicotine 21mg patch - 24 hr TD SCH (08:41)
[2018-08-25] MEDS: potassium Cl 20 mEq SR tablet PO PRN (08:41)
[2018-08-25] MEDS: spironolactone 25 MG tablet PO SCH (08:41)
[2018-08-25] MEDS: thiamine 100mg tablet PO SCH (08:41)
[2018-08-25] MEDS: folic acid 1mg tablet PO SCH (08:42)
[2018-08-25] MEDS: CefTRIAXone 2gm/D5W 50ml 50 ML IV SCH (08:42)
[2018-08-25] MEDS: furosemide 40mg tablet PO SCH (08:42)
[2018-08-25] MEDS: pantoprazole 40mg Tablet.DR PO SCH (08:42)
[2018-08-25] MEDS: HYDROcodone/acetaminophen 10/325mg tab PO PRN ×2 (08:43→14:07)
[2018-08-25] MEDS ORDERED: PANT40TA4 PO (11:04)
[2018-08-25] MEDS ORDERED: SPIR25TA PO (11:04)
[2018-08-25] MEDS ORDERED: thiamine tablet PO (11:04)
[2018-08-25] MEDS ORDERED: FOLI1TAB16 PO (11:04)
[2018-08-25] MEDS ORDERED: FURO40TA4 PO (11:04)
[2018-08-25] MEDS ORDERED: LACT10SO32 PO (11:04)
[2018-08-25] MEDS ORDERED: NICO-630 TOP (11:50)
[2018-08-25 12:00] VITALS: BP 127/66
--- NOTE | 2018-08-28 09:22 | NUR ---
Pt's d/c'd home. SS referral closed.
== END 2018-08-25 14:24 | disposition home or self-care (01) | DRG 280 ==
LOC: ER 19:59 → ED HOLD 08-17 00:24 → EDBEDREQSVC 08-17 08:20 → SUR 3N 08-18 08:00
PROVIDERS: ADMIT Family Medicine; ATTEND Internal Medicine
PROC: 0W9G3ZZ Drainage of Peritoneal Cavity, Percutaneous Approach (ICD-10-PCS; principal; 2018-08-18)
PROC: 3E0234Z Introduction of Serum, Toxoid and Vaccine into Muscle, Percutaneous Approach (ICD-10-PCS; 2018-08-19)
DX: K70.31 Alcoholic cirrhosis of liver with ascites (principal); E43 Unspecified severe protein-calorie malnutrition; K85.20 Alcohol induced acute pancreatitis without necrosis or infection; D68.9 Coagulation defect, unspecified; D69.6 Thrombocytopenia, unspecified; K72.90 Hepatic failure, unspecified without coma; I12.0 Hypertensive chronic kidney disease with stage 5 chronic kidney disease or end stage renal disease; E87.1 Hypo-osmolality and hyponatremia; R47.81 Slurred speech; R60.0 Localized edema; F10.20 Alcohol dependence, uncomplicated; E87.6 Hypokalemia; F17.210 Nicotine dependence, cigarettes, uncomplicated; H66.90 Otitis media, unspecified, unspecified ear; N18.6 End stage renal disease; Z79.899 Other long term (current) drug therapy; Z23 Encounter for immunization; Z56.0 Unemployment, unspecified; Z68.39 Body mass index [BMI] 39.0-39.9, adult
CPT/HCPCS: 36415; 49083; 74176; 80053; 80305; 81001; 82140; 82150; 82945; 83036; 83615; 83690; 83735; 83880; 84100; 84132; 84157; 84484; 85025; 85610; 85730; 87070; 87075; 87102; 89051; 90715; 90732; 97110; 97116; 97161; 97530; 99285; G0378; J0696; J1170; J1630; J1940; J2001; J2060; J3411; J3475; J3490; J7030; J7060; J7070; P9047

== ENCOUNTER 2018-08-29 02:20 | Emergency (ER) | payer MEDICAID ==
[~2018-08-29] VITALS: Ht 177.8 cm; Wt 102.2 kg
[~2018-08-29 02:20] MED LIST: FOLI1TAB16 PO; FURO40TA4 PO; LACT10SO32 PO; NICO-630 TOP; NO HOME MEDS; PANT40TA4 PO; SPIR25TA PO; thiamine tablet PO
[2018-08-29 03:07] VITALS: BP 133/86
== END 2018-08-29 03:09 | disposition home or self-care (01) ==
LOC: ER 02:22
DX: K72.90 Hepatic failure, unspecified without coma (principal); R18.8 Other ascites; Z79.899 Other long term (current) drug therapy; Z56.0 Unemployment, unspecified
CPT/HCPCS: 99281

== ENCOUNTER 2018-09-08 06:58 | Emergency (ER) | payer MEDICAID ==
[~2018-09-08] VITALS: Ht 175.3 cm; Wt 94.7 kg
[2018-09-08 07:33] VITALS: BP 125/75
[2018-09-08 09:16] LABS: BASOPHILS % (AUTO) 0.7 % (0-1); EOSINOPHILS % (AUTO) 0.8 % (0-6); HEMATOCRIT 45.6 % (42.0-52.0); HEMOGLOBIN 15.1 g/dl (14.0-17.9); LYMPHOCYTES # (AUTO) 1.2 X10'3 (1.1-4.8); LYMPHOCYTES % (AUTO) 21.9 % (21-51); MEAN CORPUSCULAR HEMOGLOBIN 31.9 PG (27.0-31.0); MEAN CORPUSCULAR HGB CONC 33.1 % (33.0-36.5); MEAN CORPUSCULAR VOLUME 96.3 FL (78-98); MEAN PLATELET VOLUME 7.5 FL (7.4-10.4); MONOCYTES # (AUTO) 0.6 X10'3 (0-0.9); NEUTROPHILS # (AUTO) 3.8 X10'3 (1.8-7.7); NEUTROPHILS % (AUTO) 66.6 % (42-75); PLATELET COUNT 107 X10'3 (140-440); RED BLOOD COUNT 4.74 X10'6 (4.70-6.10); RED CELL DISTRIBUTION WIDTH 12.8 % (11.5-14.5); WHITE BLOOD COUNT 5.6 X10'3 (4.5-11.0)
[2018-09-08 09:26] LABS: INR 1.4 INR; PARTIAL THROMBOPLASTIN TIME 28 SECONDS (22-32); PROTHROMBIN TIME 13.7 SECONDS (9.0-12.0)
--- NOTE | 2018-09-08 09:26 | NUR ---
PA at bedside with US for assessment.
[2018-09-08 09:29] LABS: ALANINE AMINOTRANSFERASE 51 U/L (12-78); ALBUMIN 2.4 G/DL (3.4-5.0); ALBUMIN/GLOBULIN RATIO 0.7 (1.1-1.5); ALKALINE PHOSPHATASE 81 IU/L (46-116); ANION GAP 9 (8-16); ASPARTATE AMINO TRANSFERASE 57 U/L (10-37); BILIRUBIN,TOTAL 2.2 MG/DL (0.1-1.0); BLOOD UREA NITROGEN 8 MG/DL (7-18); BUN/CREATININE RATIO 7.6 (5.4-32.0); CALCIUM 7.7 MG/DL (8.5-10.1); CHLORIDE 100 MMOL/L (99-107); CREATININE 1.05 MG/DL (0.60-1.10); GLUCOSE 150 MG/DL (70-104); POTASSIUM 3.5 MMOL/L (3.5-5.1); SODIUM 136 MMOL/L (135-145); TOTAL CARBON DIOXIDE 27.4 MMOL/L (24-32); TOTAL PROTEIN 5.9 G/DL (6.4-8.2); eGFR 72 ML/MIN
[2018-09-08] MEDS ORDERED: LIDOcaine 1.5% w/epinephrine 1:200,000 5ml ampul IJ ONE (09:30)
[2018-09-08] MEDS ORDERED: LIDOcaine 1% w/epiNEPHrine 1:200,000 30ml vial IJ ONE (09:35)
== END 2018-09-08 11:54 | disposition home or self-care (01) ==
LOC: ER 06:59
DX: K70.31 Alcoholic cirrhosis of liver with ascites (principal); Z56.0 Unemployment, unspecified; Z79.899 Other long term (current) drug therapy
CPT/HCPCS: 36415; 49083; 80053; 85025; 85610; 85730; 99285; J3490

== ENCOUNTER 2018-09-16 07:19 | Day surgery (SDC) | payer MEDICAID ==
[~2018-09-16] VITALS: Ht 175.3 cm; Wt 93.6 kg
[~2018-09-16 07:19] MED LIST changes: +LIDOcaine 1% 30ml preserv. free vial SQ STA
[2018-09-16] MEDS ORDERED: albumin 25% 50mL bottle X 2 BOTTLES IV ONE (07:55)
[2018-09-16] MEDS ORDERED: normal saline 1000ml 1,000 ML IV PRN (07:55)
[2018-09-16 08:15] VITALS: BP 129/78
[2018-09-16] MEDS ORDERED: LACT10SO67 PO (08:25)
[2018-09-16] MEDS ORDERED: FURO40TA4 PO (08:25)
[2018-09-16] MEDS ORDERED: FOLI0.4T2 PO (08:25)
[2018-09-16] MEDS ORDERED: PANT-47 PO (08:25)
[2018-09-16] MEDS ORDERED: THIA100T66 PO (08:25)
[2018-09-16 08:43] VITALS: BP 129/74
[2018-09-16 08:58] VITALS: BP 121/68
[2018-09-16 09:13] VITALS: BP 126/72
[2018-09-16 09:28] VITALS: BP 126/52
[2018-09-16 09:30] VITALS: BP 118/58
== END 2018-09-16 09:42 | disposition home or self-care (01) ==
LOC: SSTAY O 07:19
PROVIDERS: ATTEND Radiology Vascular & Interventional Radiology
DX: R18.8 Other ascites (principal); K72.90 Hepatic failure, unspecified without coma; K76.6 Portal hypertension; F10.10 Alcohol abuse, uncomplicated; Z87.891 Personal history of nicotine dependence; Z96.642 Presence of left artificial hip joint; Z72.89 Other problems related to lifestyle; Z86.19 Personal history of other infectious and parasitic diseases; Z98.890 Other specified postprocedural states; Z79.899 Other long term (current) drug therapy; Z82.49 Family history of ischemic heart disease and other diseases of the circulatory system; Z83.6 Family history of other diseases of the respiratory system
CPT/HCPCS: 49083; J3490; J7030

== ENCOUNTER 2018-09-23 07:17 | Day surgery (SDC) | payer MEDICAID ==
[~2018-09-23] VITALS: Ht 175.3 cm; Wt 93.9 kg
[~2018-09-23 07:17] MED LIST changes: +FOLI0.4T2 PO; -FOLI1TAB16 PO; -LACT10SO32 PO; +LACT10SO67 PO; -NICO-630 TOP; -NO HOME MEDS; +PANT-47 PO; -PANT40TA4 PO; -SPIR25TA PO; +THIA100T66 PO; -thiamine tablet PO
[2018-09-23 07:27] VITALS: BP 139/43
[2018-09-23] MEDS ORDERED: normal saline 1000ml 1,000 ML IV PRN (07:40)
[2018-09-23] MEDS ORDERED: albumin 25% 50mL bottle X 2 BOTTLES IV ONE (07:40)
[2018-09-23 08:38] VITALS: BP 121/59
--- NOTE | 2018-09-23 08:50 | NUR ---
KALYANI GARIBAY MANAGER BUSINESS CONTINUITY AT THE BEDSIDE, PROVIDED EDUCATION ON ALBUMIN ADMINISTRATION. PT IS REFUSING IV AND ALBUMIN AT THIS TIME.
[2018-09-23 08:53] VITALS: BP 141/80
[2018-09-23 09:08] VITALS: BP 142/75
[2018-09-23 09:20] VITALS: BP 130/74
== END 2018-09-23 09:30 | disposition home or self-care (01) ==
LOC: SSTAY O 07:17
PROVIDERS: ATTEND Radiology Diagnostic Radiology
DX: R18.8 Other ascites (principal); K72.90 Hepatic failure, unspecified without coma; Z87.891 Personal history of nicotine dependence; Z96.642 Presence of left artificial hip joint; Z72.89 Other problems related to lifestyle; Z86.19 Personal history of other infectious and parasitic diseases; Z98.890 Other specified postprocedural states; Z79.899 Other long term (current) drug therapy; Z82.49 Family history of ischemic heart disease and other diseases of the circulatory system; Z83.6 Family history of other diseases of the respiratory system
CPT/HCPCS: 49083; J3490; J7030

== ENCOUNTER 2018-09-30 06:49 | Day surgery (SDC) | payer MEDICAID ==
[~2018-09-30] VITALS: Ht 175.3 cm; Wt 91.4 kg
[2018-09-30 07:11] VITALS: BP 148/80
[2018-09-30] MEDS ORDERED: albumin 25% 50mL bottle X 2 BOTTLES IV ONE (07:15)
[2018-09-30 08:19] VITALS: BP 148/80
[2018-09-30 08:30] VITALS: BP 125/73
[2018-09-30 08:45] VITALS: BP 114/69
[2018-09-30 08:48] VITALS: BP 128/69
[2018-09-30 08:49] VITALS: BP 128/69
== END 2018-09-30 08:55 | disposition home or self-care (01) ==
LOC: SSTAY O 06:49
PROVIDERS: ATTEND Radiology Vascular & Interventional Radiology
DX: R18.8 Other ascites (principal); K72.90 Hepatic failure, unspecified without coma; K74.60 Unspecified cirrhosis of liver; Z87.891 Personal history of nicotine dependence; F10.21 Alcohol dependence, in remission; Z96.642 Presence of left artificial hip joint; Z86.19 Personal history of other infectious and parasitic diseases; Z98.890 Other specified postprocedural states; Z79.899 Other long term (current) drug therapy; Z82.49 Family history of ischemic heart disease and other diseases of the circulatory system; Z83.6 Family history of other diseases of the respiratory system
CPT/HCPCS: 49083; C1729; J3490

== ENCOUNTER 2018-10-07 06:44 | Day surgery (SDC) | payer MEDICAID ==
[2018-10-07] VITALS (7 sets, daily range): BP systolic 128–150; BP diastolic 71–86
[~2018-10-07] VITALS: Ht 175.3 cm; Wt 93.2 kg
[~2018-10-07 06:44] MED LIST changes: -LIDOcaine 1% 30ml preserv. free vial SQ STA
[2018-10-07] MEDS ORDERED: normal saline 1000ml 1,000 ML IV PRN (07:05)
[2018-10-07] MEDS ORDERED: albumin 25% 50mL bottle X 2 BOTTLES IV ONE (07:05)
[2018-10-07] MEDS ORDERED: diazepam 5mg tablet PO PRN (08:05)
[2018-10-07] MEDS ORDERED: LIDOcaine 1% 30ml preserv. free vial SQ ONE (09:00)
== END 2018-10-07 11:05 | disposition home or self-care (01) ==
LOC: SSTAY O 06:44
PROVIDERS: ATTEND Radiology Diagnostic Radiology
DX: K70.31 Alcoholic cirrhosis of liver with ascites (principal)
CPT/HCPCS: 49083; C1729; J3490; J7030

== ENCOUNTER 2018-10-15 06:58 | Day surgery (SDC) | payer MEDICAID ==
[2018-10-15] VITALS (8 sets, daily range): BP systolic 123–137; BP diastolic 65–74
[~2018-10-15] VITALS: Ht 175.3 cm; Wt 94.5 kg
[2018-10-15] MEDS ORDERED: normal saline 1000ml 1,000 ML IV PRN (07:40)
[2018-10-15] MEDS ORDERED: albumin 25% 50mL bottle X 2 BOTTLES IV ONE (07:40)
[2018-10-15] MEDS ORDERED: LIDOcaine 1% 30ml preserv. free vial SQ ONE (08:30)
== END 2018-10-15 10:00 | disposition home or self-care (01) ==
LOC: SSTAY O 06:58
PROVIDERS: ATTEND Radiology Diagnostic Radiology
DX: R18.8 Other ascites (principal)
CPT/HCPCS: 49083; C1729; J3490; J7030

== ENCOUNTER 2018-10-23 08:23 | Day surgery (SDC) | payer MEDICAID ==
[~2018-10-23] VITALS: Ht 175.3 cm; Wt 89.0 kg
[2018-10-23] VITALS (7 sets, daily range): BP systolic 114–134; BP diastolic 59–74
[~2018-10-23 08:23] MED LIST changes: +LIDOcaine 1% 30ml preserv. free vial SQ STA
[2018-10-23] MEDS ORDERED: normal saline 1000ml 1,000 ML IV PRN (08:35)
[2018-10-23] MEDS ORDERED: albumin (human) 25% 100 ML IV solution IV PRN (08:35)
== END 2018-10-23 09:55 | disposition home or self-care (01) ==
LOC: SSTAY O 08:23
PROVIDERS: ATTEND Radiology Diagnostic Radiology
DX: K70.31 Alcoholic cirrhosis of liver with ascites (principal)
CPT/HCPCS: 49083; J3490; J7030

== ENCOUNTER 2018-10-30 07:44 | Day surgery (SDC) | payer MEDICAID ==
[~2018-10-30] VITALS: Ht 175.3 cm; Wt 90.3 kg
[2018-10-30 07:53] VITALS: BP 124/63
[2018-10-30] MEDS ORDERED: normal saline 1000ml 1,000 ML IV PRN (08:05)
[2018-10-30] MEDS ORDERED: albumin 25% 50mL bottle X 2 BOTTLES IV ONE (08:05)
[2018-10-30] MEDS ORDERED: SPIR25TA5 PO (08:06)
[2018-10-30] MEDS ORDERED: pneumococcal 23-VAL P-sac vacc 25 mcg/0.5ml vial IMVAC ONE (08:30)
[2018-10-30 08:42] VITALS: BP 132/71
[2018-10-30 09:00] VITALS: BP 118/71
[2018-10-30 09:15] VITALS: BP 121/68
[2018-10-30 09:30] VITALS: BP 110/62
== END 2018-10-30 09:40 | disposition home or self-care (01) ==
LOC: SSTAY O 07:44
PROVIDERS: ATTEND Radiology Vascular & Interventional Radiology
DX: K70.31 Alcoholic cirrhosis of liver with ascites (principal); Z23 Encounter for immunization
CPT/HCPCS: 49083; 90471; 90732; C1729; J3490; J7030

== ENCOUNTER 2018-11-06 07:58 | Day surgery (SDC) | payer MEDICAID ==
[~2018-11-06] VITALS: Ht 175.3 cm; Wt 94.1 kg
[2018-11-06] VITALS (10 sets, daily range): BP systolic 109–132; BP diastolic 55–74
[~2018-11-06 07:58] MED LIST changes: +SPIR25TA5 PO
[2018-11-06] MEDS ORDERED: albumin 25% 50mL bottle X 2 BOTTLES IV ONE (08:15)
== END 2018-11-06 10:15 | disposition home or self-care (01) ==
LOC: SSTAY O 07:58
PROVIDERS: ATTEND Radiology Vascular & Interventional Radiology
DX: K70.31 Alcoholic cirrhosis of liver with ascites (principal)
CPT/HCPCS: 49083; J3490

== ENCOUNTER 2018-11-13 07:20 | Day surgery (SDC) | payer MEDICAID ==
[2018-11-13] VITALS (7 sets, daily range): BP systolic 109–140; BP diastolic 64–77
[~2018-11-13] VITALS: Ht 175.3 cm; Wt 95.8 kg
[2018-11-13] MEDS ORDERED: albumin 25% 100mL bottle x 1 IV ONE (07:40)
[2018-11-13] MEDS ORDERED: normal saline 1000ml 1,000 ML IV PRN (07:40)
[2018-11-13] MEDS ORDERED: nitroGLYCERIN-Tridil 50MG/D5W 250 ML IV ONE (08:40)
== END 2018-11-13 10:00 | disposition home or self-care (01) ==
LOC: SSTAY O 07:20
PROVIDERS: ATTEND Radiology Diagnostic Radiology
DX: K70.31 Alcoholic cirrhosis of liver with ascites (principal)
CPT/HCPCS: 49083; C1729; J3490; J7030

== ENCOUNTER 2018-11-20 07:37 | Day surgery (SDC) | payer MEDICAID ==
[~2018-11-20] VITALS: Ht 175.3 cm; Wt 89.9 kg
[2018-11-20 07:50] VITALS: BP 127/63
[2018-11-20] MEDS ORDERED: albumin 25% 100mL bottle x 1 IV ONE (07:50)
[2018-11-20] MEDS ORDERED: normal saline 1000ml 1,000 ML IV PRN (07:50)
[2018-11-20 08:49] VITALS: BP 117/71
[2018-11-20 09:00] VITALS: BP 117/72
[2018-11-20 09:15] VITALS: BP 113/74
[2018-11-20 09:30] VITALS: BP 94/65
[2018-11-20 09:39] VITALS: BP 110/65
== END 2018-11-20 09:50 | disposition home or self-care (01) ==
LOC: SSTAY O 07:37
PROVIDERS: ATTEND Radiology Vascular & Interventional Radiology
DX: K70.31 Alcoholic cirrhosis of liver with ascites (principal)
CPT/HCPCS: 49083; C1729; J3490; J7030; P9047

== ENCOUNTER 2018-11-29 06:43 | Day surgery (SDC) | payer MEDICAID ==
[~2018-11-29] VITALS: Ht 175.3 cm; Wt 91.9 kg
[~2018-11-29 06:43] MED LIST changes: -LIDOcaine 1% 30ml preserv. free vial SQ STA
[2018-11-29] MEDS ORDERED: albumin 25% 100mL bottle x 1 IV PRN (07:00)
[2018-11-29] MEDS ORDERED: normal saline 1000ml 1,000 ML IV PRN (07:00)
[2018-11-29 07:28] VITALS: BP 101/52
[2018-11-29] MEDS ORDERED: LIDOcaine 1% 30ml preserv. free vial SQ ONE (08:30)
[2018-11-29 08:48] VITALS: BP 121/79
[2018-11-29 09:03] VITALS: BP 131/73
[2018-11-29 09:18] VITALS: BP 139/77
[2018-11-29 09:20] VITALS: BP 139/77
[2018-11-29 09:33] VITALS: BP 133/76
== END 2018-11-29 09:40 | disposition home or self-care (01) ==
LOC: SSTAY O 06:43
PROVIDERS: ATTEND Radiology Diagnostic Radiology
DX: K70.31 Alcoholic cirrhosis of liver with ascites (principal)
CPT/HCPCS: 49083; C1729; J3490; J7030; P9047

== ENCOUNTER 2018-12-05 06:53 | Day surgery (SDC) | payer MEDICAID ==
[~2018-12-05] VITALS: Ht 175.3 cm; Wt 90.1 kg
[2018-12-05 06:50] VITALS: BP 129/79
[2018-12-05] MEDS ORDERED: normal saline 1000ml 1,000 ML IV PRN (07:45)
[2018-12-05] MEDS ORDERED: albumin 25% 100mL bottle x 1 IV PRN (07:45)
[2018-12-05 08:55] VITALS: BP 105/65
[2018-12-05 09:00] VITALS: BP 105/65
[2018-12-05 09:15] VITALS: BP 104/66
[2018-12-05 09:30] VITALS: BP_SYST 107; BP_SYST 99; BP_DIAS 63; BP_DIAS 64
[2018-12-05] MEDS ORDERED: LIDOcaine 1% 30ml preserv. free vial SQ ONE (09:30)
== END 2018-12-05 10:45 | disposition home or self-care (01) ==
LOC: SSTAY O 06:53
PROVIDERS: ATTEND Radiology Diagnostic Radiology
DX: K70.31 Alcoholic cirrhosis of liver with ascites (principal)
CPT/HCPCS: 49083; C1729; J3490; J7030

== ENCOUNTER 2018-12-16 06:20 | Day surgery (SDC) | payer MEDICAID ==
[~2018-12-16] VITALS: Ht 175.3 cm; Wt 94.4 kg
[2018-12-16] VITALS (7 sets, daily range): BP systolic 111–120; BP diastolic 51–70
[~2018-12-16 06:20] MED LIST changes: +LIDOcaine 1% 30ml preserv. free vial SQ STA
[2018-12-16] MEDS ORDERED: normal saline 1000ml 1,000 ML IV PRN (06:40)
[2018-12-16] MEDS ORDERED: albumin 25% 100mL bottle x 1 IV PRN (06:40)
== END 2018-12-16 09:25 | disposition home or self-care (01) ==
LOC: SSTAY O 06:20
PROVIDERS: ATTEND Radiology Vascular & Interventional Radiology
DX: K70.31 Alcoholic cirrhosis of liver with ascites (principal)
CPT/HCPCS: 49083; C1729; J3490; J7030; P9047

== ENCOUNTER 2018-12-30 07:47 | Day surgery (SDC) | payer MEDICAID ==
[~2018-12-30] VITALS: Ht 175.3 cm; Wt 93.8 kg
[2018-12-30] VITALS (8 sets, daily range): BP systolic 106–126; BP diastolic 60–71
[2018-12-30] MEDS: albumin 25% 100mL bottle x 1 IV PRN ×2 (08:55→09:22)
== END 2018-12-30 10:00 | disposition home or self-care (01) ==
LOC: SSTAY O 07:47
PROVIDERS: ATTEND Radiology Vascular & Interventional Radiology
DX: K70.31 Alcoholic cirrhosis of liver with ascites (principal)
CPT/HCPCS: 49083; C1729; J3490; P9047

== ENCOUNTER 2019-01-09 06:36 | Day surgery (SDC) | payer MEDICAID ==
[~2019-01-09] VITALS: Ht 175.3 cm; Wt 89.6 kg
[~2019-01-09 06:36] MED LIST changes: -LIDOcaine 1% 30ml preserv. free vial SQ STA
[2019-01-09] MEDS ORDERED: normal saline 1000ml 1,000 ML IV PRN (07:00)
[2019-01-09] MEDS ORDERED: albumin 25% 100mL bottle x 1 IV PRN (07:00)
[2019-01-09 07:33] VITALS: BP 105/46
[2019-01-09 09:00] VITALS: BP 117/71
[2019-01-09] MEDS ORDERED: LIDOcaine 1% 30ml preserv. free vial SQ ONE (09:00)
[2019-01-09 09:15] VITALS: BP 121/90
[2019-01-09 09:30] VITALS: BP 124/61
[2019-01-09 09:45] VITALS: BP 130/66
[2019-01-09 10:00] VITALS: BP 132/66
== END 2019-01-09 10:00 | disposition home or self-care (01) ==
LOC: SSTAY O 06:36
PROVIDERS: ATTEND Radiology Diagnostic Radiology
DX: K70.31 Alcoholic cirrhosis of liver with ascites (principal)
CPT/HCPCS: 49083; C1729; J3490; J7030; P9047

== ENCOUNTER 2019-01-21 07:39 | Day surgery (SDC) | payer MEDICAID ==
[~2019-01-21] VITALS: Ht 175.3 cm; Wt 89.9 kg
[2019-01-21] VITALS (7 sets, daily range): BP systolic 92–117; BP diastolic 54–69
[~2019-01-21 07:39] MED LIST changes: +LIDOcaine 1% 30ml preserv. free vial SQ STA
[2019-01-21] MEDS: albumin 25% 100mL bottle x 1 IV PRN ×2 (09:06→09:37)
[2019-01-24] MEDS ORDERED: FOLI0.4T2 PO (19:24)
[2019-01-24] MEDS ORDERED: LACT10SO32 PO (19:24)
[2019-02-03] MEDS ORDERED: RIFA550T PO (13:39)
[2019-02-03] MEDS ORDERED: Demeclocycline Hcl PO (13:39)
== END 2019-01-21 10:10 | disposition home or self-care (01) ==
LOC: SSTAY O 07:39
PROVIDERS: ATTEND Radiology Vascular & Interventional Radiology
DX: K70.31 Alcoholic cirrhosis of liver with ascites (principal); K72.90 Hepatic failure, unspecified without coma; K76.9 Liver disease, unspecified; Z86.19 Personal history of other infectious and parasitic diseases; Z79.899 Other long term (current) drug therapy; Z98.890 Other specified postprocedural states
CPT/HCPCS: 49083; C1729; J3490; P9047

== ENCOUNTER 2019-03-04 07:18 | Day surgery (SDC) | payer MEDICAID ==
[~2019-03-04] VITALS: Ht 175.3 cm; Wt 93.7 kg
[2019-03-04] VITALS (13 sets, daily range): BP systolic 99–121; BP diastolic 63–75
[~2019-03-04 07:18] MED LIST changes: +LACT10SO32 PO; -LACT10SO67 PO; -LIDOcaine 1% 30ml preserv. free vial SQ STA; +RIFA550T PO
[2019-03-04] MEDS ORDERED: normal saline 1000ml 1,000 ML IV PRN (07:45)
[2019-03-04] MEDS: albumin 25% 100mL bottle x 1 IV PRN ×3 (08:57→10:41)
== END 2019-03-04 11:15 | disposition home or self-care (01) ==
LOC: SSTAY O 07:18
PROVIDERS: ATTEND Radiology Vascular & Interventional Radiology
DX: K70.31 Alcoholic cirrhosis of liver with ascites (principal)
CPT/HCPCS: 49083; C1729; J7030; P9047

== ENCOUNTER 2019-03-11 07:20 | Day surgery (SDC) | payer MEDICAID ==
[~2019-03-11] VITALS: Ht 175.3 cm; Wt 88.8 kg
[2019-03-11] VITALS (14 sets, daily range): BP systolic 114–125; BP diastolic 54–66
[2019-03-11] MEDS ORDERED: normal saline 1000ml 1,000 ML IV PRN (08:10)
[2019-03-11] MEDS: albumin 25% 100mL bottle x 1 IV PRN ×2 (10:09→10:53)
== END 2019-03-11 11:50 | disposition home or self-care (01) ==
LOC: SSTAY O 07:20
PROVIDERS: ATTEND Radiology Diagnostic Radiology
DX: K70.31 Alcoholic cirrhosis of liver with ascites (principal)
CPT/HCPCS: 49083; C1729; J7030; P9047

== ENCOUNTER 2019-03-25 15:30 | Emergency (ER) | payer MEDICAID ==
[2019-03-25] MEDS ORDERED: LIDOcaine 2% 10ml TOPICAL JELLY (Urojet) MM ONE (15:45)
[2019-03-25] MEDS ORDERED: normal saline 1000ML IV soln IVB ONE ×2 (15:45→17:00)
--- NOTE | 2019-03-25 16:15 | NUR ---
CHARLY CONTACT INFO: [phone]
[2019-03-25] MEDS ORDERED: CefTRIAXone 2gm/D5W 50ml 50 ML IV ONE (16:35)
[2019-03-25 16:37] LABS: BASOPHILS % (AUTO) 0.3 % (0-1); EOSINOPHILS % (AUTO) 0.3 % (0-6); HEMATOCRIT 23.6 % (42.0-52.0); HEMOGLOBIN 8.3 g/dl (14.0-17.9); LYMPHOCYTES # (AUTO) 0.8 X10'3 (1.1-4.8); MEAN CORPUSCULAR HEMOGLOBIN 36.3 PG (27.0-31.0); MEAN CORPUSCULAR VOLUME 103.6 FL (78-98); MEAN PLATELET VOLUME 5.9 FL (7.4-10.4); MONOCYTES # (AUTO) 0.9 X10'3 (0-0.9); MONOCYTES % (AUTO) 8.3 % (2-12); NEUTROPHILS # (AUTO) 8.7 X10'3 (1.8-7.7); NEUTROPHILS % (AUTO) 83.1 % (42-75); PLATELET COUNT 100 X10'3 (140-440); RED BLOOD COUNT 2.28 X10'6 (4.70-6.10); WHITE BLOOD COUNT 10.5 X10'3 (4.5-11.0)
[2019-03-25 16:47] LABS: ALANINE AMINOTRANSFERASE 38 U/L (12-78); ALBUMIN 2.2 G/DL (3.4-5.0); ALBUMIN/GLOBULIN RATIO 0.9 (1.1-1.5); ALKALINE PHOSPHATASE 99 IU/L (46-116); ANION GAP 8 (8-16); ASPARTATE AMINO TRANSFERASE 70 U/L (10-37); BILIRUBIN,TOTAL 2.1 MG/DL (0.1-1.0); BLOOD UREA NITROGEN 24 MG/DL (7-18); BUN/CREATININE RATIO 10.8 (5.4-32.0); CALCIUM 7.2 MG/DL (8.5-10.1); CHLORIDE 93 MMOL/L (99-107); CREATININE 2.23 MG/DL (0.60-1.10); ETHANOL < 0.010 GM/DL (0.0-0.010); GLUCOSE 93 MG/DL (70-104); POTASSIUM 5.9 MMOL/L (3.5-5.1); TOTAL CARBON DIOXIDE 17.6 MMOL/L (24-32); TOTAL PROTEIN 4.6 G/DL (6.4-8.2); eGFR 30 ML/MIN
[2019-03-25 16:51] LABS: SODIUM 119 MMOL/L (135-145)
[2019-03-25 16:52] LABS: CLARITY,URINE TURBID (Clear); GLUCOSE, URINE NEGATIVE (Neg); KETONES,URINE NEGATIVE (Neg); LEUKOCYTE ESTERASE ,URINE LARGE (Neg); NITRITES, URINE NEGATIVE (Neg); OCCULT BLOOD,URINE LARGE (Neg); PH,URINE 5.5 (4.8-8.0); PROTEIN,URINE 100 mg/dl (Neg); UROBILINOGEN,URINE 0.2 E.U/dL (0.2-1.0)
[2019-03-25 16:56] LABS: COLOR,URINE PINK (Yellow); UA COLLECTION TYPE CLN CATCH MIDSTREAM
--- NOTE | 2019-03-25 16:56 | NUR ---
Patients called to check on the patient and was concerned if he was still alive. She was informed he is still alive however he has abnormal labs and he will need to be transfered. She is requesting a phone call when he have more information. Phone number is [phone]
[2019-03-25 16:59] LABS: TRANSITIONAL EPI CELLS,URINE MANY /HPF
[2019-03-25 17:00] LABS: BACTERIA,URINE 4+ /HPF (Neg); HYALINE CASTS 0-3 /LPF (NEGATIVE)
[2019-03-25 17:01] LABS: MUCUS STRANDS NONE SEEN /LPF (Neg); RENAL CELLS, URINE FEW /HPF; SQUAMOUS EPITHELIAL CELL,UR NONE SEEN /LPF (FEW)
[2019-03-25 17:02] LABS: WBC,URINE TNTC /HPF (0-4)
[2019-03-25 17:03] LABS: RBC,URINE TNTC /HPF (0-2)
[2019-03-25 17:04] LABS: URINE AMPHETAMINE SCREEN NEGATIVE (Neg); URINE BARBITUATE SCREEN NEGATIVE (Neg); URINE BENZODIAZEPINES SCREEN NEGATIVE (Neg); URINE CANNABINOID SCREEN NEGATIVE (Neg); URINE COCAINE SCREEN NEGATIVE (Neg); URINE METHADONE SCREEN NEGATIVE (Neg); URINE OPIATE SCREEN NEGATIVE (Neg); URINE PHENCYCLIDINE SCREEN NEGATIVE (Neg)
[2019-03-25 17:57] VITALS: BP 103/55
== END 2019-03-25 18:00 | disposition short-term general hospital (02) ==
LOC: ER 15:31
DX: A41.9 Sepsis, unspecified organism (principal); I62.00 Nontraumatic subdural hemorrhage, unspecified; K70.30 Alcoholic cirrhosis of liver without ascites; N17.9 Acute kidney failure, unspecified; E87.1 Hypo-osmolality and hyponatremia; N39.0 Urinary tract infection, site not specified; Z56.0 Unemployment, unspecified; Z79.899 Other long term (current) drug therapy
CPT/HCPCS: 36415; 51702; 70450; 71045; 80053; 80305; 80320; 81001; 82140; 83605; 85025; 85610; 87040; 87077; 87088; 87186; 93005; 96365; 99291; J0696; J7030; J7040